=== PATIENT | female | born 1945 | race Caucasian/White ===

== ENCOUNTER 2023-02-07 06:40 | Emergency (ER) | payer MEDICARE, OTHER ==
[~2023-02-07] VITALS: Ht 154.9 cm; Wt 84.8 kg
[2023-02-07] MEDS ORDERED: TOPROL XL25 MG PO (12:28)
[2023-02-07 13:24] VITALS: BP 155/69
--- NOTE | 2023-02-08 21:59 | EKG ---
[facility] [address] [facility] [place] [address] Signed Sinus rhythm with marked sinus arrhythmia Right bundle branch block Abnormal ECG No previous ECGs available Confirmed by Micah Underwood MD () on 02/08/2023 9:59:41 PM Electronically Signed By: MICAH UNDERWOOD MD 02/08/23 2159 PATIENT NAME: FAUSTINO MÉNDEZ Electrocardiogram DATE OF : 47 PHYSICIAN: MICAH UNDERWOOD MD REPORT #: [id number] REPORT IS CONFIDENTIAL AND NOT TO BE RELEASED WITHOUT AUTHORIZATION
--- NOTE | 2023-02-08 22:02 | EKG ---
[facility] [address] [place] [address] Signed Wide QRS tachycardia Right bundle branch block Septal infarct , age undetermined Abnormal ECG When compared with ECG of 07-FEB-2023 08:21, Wide QRS tachycardia has replaced Sinus rhythm Vent. rate has increased BY 50 BPM Confirmed by Micah Underwood MD () on 02/08/2023 10:02:23 PM Electronically Signed By: MICAH UNDERWOOD MD 02/08/232201 PATIENT NAME: FAUSTINO MÉNDEZ ROSANNE Electrocardiogram DATE OF : 47 PHYSICIAN: MICAH UNDERWOOD MD REPORT #: [id number] REPORT IS CONFIDENTIAL AND NOT TO BE RELEASED WITHOUT AUTHORIZATION
--- NOTE | 2023-02-08 22:03 | EKG ---
[facility] [address] [place] [address] Signed Poor data quality, interpretation may be adversely affected Atrial fibrillation Right bundle branch block Septal infarct , age undetermined Abnormal ECG When compared with ECG of 07-FEB-2023 09:50, Atrial fibrillation has replaced Wide QRS tachycardia Vent. rate has decreased BY 51 BPM Confirmed by Micah Underwood MD () on 02/08/2023 10:03:40 PM Electronically Signed By: MICAH UNDERWOOD MD 02/08/232202 PATIENT NAME: FAUSTINO MÉNDEZ Electrocardiogram DATE OF : 47 PHYSICIAN: MICAH UNDERWOOD MD REPORT #: [id number] REPORT IS CONFIDENTIAL AND NOT TO BE RELEASED WITHOUT AUTHORIZATION
--- NOTE | 2023-02-08 22:06 | EKG ---
[facility] [address] [place] [address] Signed Wide QRS tachycardia Nonspecific intraventricular block Cannot rule out Septal infarct , age undetermined Abnormal ECG When compared with ECG of 07-FEB-2023 09:50, Right bundle branch block is still present Confirmed by Micah Underwood MD () on 02/08/2023 10:06:13 PM Electronically Signed By: MICAH UNDERWOOD MD 02/08/232205 PATIENT NAME: FAUSTINO MÉNDEZ ROSANNE Electrocardiogram DATE OF : 47 PHYSICIAN: MICAH UNDERWOOD MD REPORT #: [id number] REPORT IS CONFIDENTIAL AND NOT TO BE RELEASED WITHOUT AUTHORIZATION
== END 2023-02-07 13:20 | disposition home or self-care (01) ==
LOC: ED 06:40
DX: M25.551 Pain in right hip (principal); I47.1 Supraventricular tachycardia; W01.0XXA Fall on same level from slipping, tripping and stumbling without subsequent striking against object, initial encounter; Z88.0 Allergy status to penicillin; Z88.7 Allergy status to serum and vaccine; Z88.5 Allergy status to narcotic agent; Z20.822 Contact with and (suspected) exposure to COVID-19
CPT/HCPCS: 36415; 70450; 72125; 72131; 73700; 80053; 81001; 82553; 85025; 86850; 86900; 86901; 87502; 93005; 93010; 96361; 96374; 96375; 96376; 99285-25; C9803; G0480; J0153; J1200; J2270; J2405; J7121; U0003

== ENCOUNTER 2024-08-06 16:12 | Inpatient (IN) | payer MEDICARE, OTHER ==
[~2024-08-06] VITALS: Ht 154.9 cm; Wt 71.8 kg
[~2024-08-06 16:12] MED LIST: TOPROL XL25 MG PO
[2024-08-06] MEDS ORDERED: SODIUM CHLORIDE 0.9% 500 ML IV ONE (17:00)
[2024-08-06 17:12] LABS: BILIRUBIN, URINE NEGATIVE (negative); BLOOD/HGB, URINE NEGATIVE (Negative); KETONE, URINE NEGATIVE (Negative); LEUK ESTERASE, URINE TRACE (negative); NITRITE, URINE NEGATIVE (negative)
[2024-08-06 17:18] LABS: EPITHELIAL CELLS, URINE SQUAMOUS 1+ /lpf (0-1+)
[2024-08-06 17:19] LABS: BACTERIA, URINE 4+ /hpf (negative); CASTS, URINE NONE SEEN \\lpf; COLLECTION TYPE, URINE CATH; CRYSTALS, URINE NONE SEEN (0-1+); RED BLOOD CELLS, URINE 0-1 /hpf (0-5); REFLEX CULTURE, URINE Yes (No); WHITE BLOOD CELLS, URINE 21-40 /HPF (0-5)
[2024-08-06] MEDS ORDERED: HYDROmorphone HCL 1 MG/ML SYR IV PRN (17:30)
[2024-08-06 17:36] LABS: BASOPHILS 1.1 % (0-2); EOSINOPHILS 2.5 % (0-6); HEMATOCRIT 44.1 % (35.0-50.0); HEMOGLOBIN 15.2 g/dL (12.0-18.0); LYMPHOCYTES 32.4 % (24-44); MCH 29.3 (27-36); MCHC 34.4 g/dl (30-36); MCV 85.2 fl (81-99); MONOCYTES 8.1 % (0-12); NEUTROPHILS 55.9 % (39-80); PLATELET COUNT 229 K/uL (140-440); RBC 5.18 M/ul (4.3-5.7); RDW 14.5 (10.5-15.0)
[2024-08-06 17:54] LABS: ALBUMIN 3.2 g/dL (3.4-5.0); ALBUMIN/GLOBULIN RATIO 0.84 (1.1-2.4); ANION GAP 6.6 (7-21); BILIRUBIN, TOTAL 0.3 ng/dL (0.2-1.0); BUN/CREATININE RATIO 33.89 (6.0-28.6); CALCIUM 9.6 mg/dL (8.5-10.1); CREATININE, SERUM 0.59 mg/dL (0.55-1.02); POTASSIUM 3.6 mmol/L (3.5-5.1)
[2024-08-06] MEDS ORDERED: CEFTRIAXONE/SODIUM CHLORIDE 2 GM/100 ML PIGGYBACK IV ONE (18:45)
[2024-08-06] MEDS ORDERED: ondansetron HCL 4 MG/2 ML VIAL IV ONE (19:00)
[2024-08-06] MEDS ORDERED: ACETAMINOPHEN 325 MG TAB PO PRN (19:30)
[2024-08-06] MEDS ORDERED: SODIUM CHLORIDE 0.9% 1,000 ML IV SCH (19:30)
[2024-08-06] MEDS ORDERED: DEXTROSE 5% 1,000 ML IV PRN (19:45)
[2024-08-06] MEDS ORDERED: DEXTROSE 50% 50 ML SYR IV PRN ×2 (19:45)
[2024-08-06] MEDS ORDERED: GLUCAGON,HUMAN RECOMBINANT 1 MG/ML VIAL SUB-Q PRN (19:45)
[2024-08-06] MEDS ORDERED: IBLOOD GLUCOSE TEST STRIP 1 EA TEST XX PRN (19:45)
[2024-08-06] MEDS ORDERED: PHENAZOPYRIDINE HCL 95 MG TAB PO PRN (20:00)
[2024-08-06] MEDS ORDERED: OXYCODONE/APAP 5/325 TAB PO PRN (20:00)
--- NOTE | 2024-08-06 20:10 | NUR ---
PATIENT ARRIVED VIA STRETCHER FROM ED, WITH CAMILO ED RN, PATIENT ALERT AND ORIENTED. SHE ENDORSES PAIN "ALL OVER, MOSTLY BACK AND LEGS". PATIENT TRANSFERED VIA STAFF SLIDE. PATIENT TOLERATED WELL. SHE IS ASKING FOR WATER, CHAPSTICK, REPOSITIONED. THIS RN DISCUSSED WITH PATIENT THAT ONCE STAFF CAN GET HER SITUATED AND V/S, ASSESSMENT COMPLETE, STAFF WILL ENSURE PATINET HAS ALL OTHER NEEDS MET.
[2024-08-06 20:14] VITALS: BP 162/81
--- NOTE | 2024-08-06 20:30 | NUR ---
UPDATED UPDATED ON ADMISSION ASSESSMENT, PATIENT HAS SEVERAL SKIN ISSUES INCLUDING YEAST/URINE BURN TYPE RASH IN GROIN, YEAST TYPE RASH UNDER BREASTS, AND PANUS. NYSTATIN POWDER ORDERED.
[2024-08-06] MEDS ORDERED: INSULIN LISPRO 100 UNIT/ML ML SUB-Q SCH (21:00)
[2024-08-06] MEDS ORDERED: NYSTATIN CREAM 30 GM TUBE TOP SCH (21:00)
[2024-08-06] MEDS ORDERED: IBLOOD GLUCOSE TEST STRIP 1 EA TEST VI SCH (21:00)
--- NOTE | 2024-08-06 21:11 | NUR ---
SUPERVISOR PLATING AND POINT ASSEMBLY CHECKED PT BLOOD SUGAR AT RN REQUEST. BLOOD SUGAR IS 146. RN NOTIFED. PT STATES NO NEEDS AT THIS TIME. CALL LIGHT WITHIN REACH.
[2024-08-06 21:54] VITALS: BP 162/81
--- NOTE | 2024-08-06 21:59 | NUR ---
PATIENT RESTING QUIELTY IN BED EYES CLOSED RESPIRATIONS REGULAR AT 18/MIN. NO DISTRESS NOTED.
--- NOTE | 2024-08-06 23:05 | NUR ---
PATIENT CALLED AND YELLING OUT IN REGARDS TO PAIN SHE REPORTS IN HER LEGS,ANKLES, AND RIGHT HIP. PERCOCET PRN ADMINISTERED, REPOSITIONED, AND ASSURED PATIENT WITH THERAPUTIC CONVERSATION THAT STAFF IS HERE TO HELP.
[2024-08-07] VITALS (14 sets, daily range): BP systolic 95–189; BP diastolic 49–110
[2024-08-07] MEDS ORDERED: ondansetron HCL 4 MG/2 ML VIAL IV PRN (01:00)
--- NOTE | 2024-08-07 01:16 | NUR ---
ROUNDING ON PATIENT, SHE IS RESTING IN BED EYES CLOSED, PATIENT ALERT TO STAFF IN ROOM. THIS RN AND TECHNICAL SALES SPECIALIST CLARISSA INTO WASH UNDER BREAST/PANNUS/GROIN AND PLACE PILLOWCASES IN SKIN FOLDS TO PROVIDE PROTECTION FROM FURTHER SKIN BREAKDOWN. THE NYSTATIN CREAM IS NOT AVAILABLE UNTIL PHARMACY ARRIVES IN AM. PATIENT REPORTS PAIN IS SEVERE, PERCOCET WAS ADMINSITERED EARLIER, WILL PROVIDED DILAUDID PRN NOW, B/P ALSO NOTED TO BE ELEVATED WITH PAIN, AFTER PAIN COVERAGE B/P STABLE. NEW PUREWICK PLACED. PATIENT DID HAVE URINE IN DEPENDS, BLADDER SCANNED TO ENSURE NOT OVER FULL PATIENT REPORTS FEELING LIKE SHE NEEDS TO VOID BUT UNABLE TO. BLADDER SCANNED FOR 187. DISCUSSED WITH PATIENT THAT SHE HAS A UTI AND THAT CAN GIVE THAT SENSATION FOR NEEDING TO VOID.
--- NOTE | 2024-08-07 03:23 | NUR ---
ANITA DO RN ASSESSING PATIENT FOR TECHNICAL ASSISTANT CONSULT ORDER AT THIS TIME. PATIENT ALERT AND ORIENTED, LAUGHING AND VISITNG WITH STAFF.
--- NOTE | 2024-08-07 03:33 | NUR ---
PATIENT ADMINISTERED DILAUDID PRN FOR PAIN RELATED TO WOUND CARE.
--- NOTE | 2024-08-07 04:18 | NUR ---
IN ROOM TO ASSESS BLE WOUNDS. BOTH LOWER LEGS HAVE FIRMLY ADHERED CRUST TO CIRCUMFERENTIAL BLE FROM JUST BELOW THE KNEES TO THE ANKLES. SCANT YELLOW DRAINAGE NOTED. RN UNABLE TO MEASURE SPECIFIC WOUNDS. PHOTO CONSENT SIGNED. BLE SOAKED IN WARM TOELS WITH SOAP, LIGHT DEBRIDEMENT WITH WASH CLOTHES PROVIDED. MODERATE DEBRIDEMENT WITH WOUND CLEANSER AND DEBRIDEMENT LOLLY PROVIDED. PT TOLERATED FAIR WITH PAIN MED PROVIDED BY PRIMARY RN. PT STILL HAS FIRMLY ADHERED CRUST ON BOTH LEGS. ZINC BASED WOUND PASTE PLACED LIBERALLY OVER ALL CRUSTED AREAS AND WOUND. 2 AREAS ON ANTERIOR LOWER RIGHT LEG COVERED WITH ADAPTIC THEY APPEAR TO HAVE AN OPEN, WHITE WOUND BASE AND ARE PAINFUL. BLE COVERED WITH ABD PADS AND WRAPPED LOOSLEY WITH COBAN. RN WILL RETURN TOMORROW TO FURTHER DEBRIDE BLE AND REASSESS FOR FURTHER CARE. IF DRESSINGS BECOME SOILED OR WET, REDRESS WITH ZINC PASTE, ABD PADS ABD COBAN.
--- NOTE | 2024-08-07 05:19 | NUR ---
AREA DIRECTOR OF HOME HEALTH SALES OBTAINED VITALS AND I&O. PUREWICK CANNISTER EMPTIED. PT STATES NO FURTHER NEEDS AT THIS TIME. CALL LIGHT WITHIN REACH.
[2024-08-07 05:21] LABS: BASOPHILS 0.7 % (0-2); EOSINOPHILS 1.1 % (0-6); HEMATOCRIT 41.6 % (35.0-50.0); HEMOGLOBIN 14.1 g/dL (12.0-18.0); LYMPHOCYTES 24.2 % (24-44); MCH 29.2 (27-36); MCV 85.9 fl (81-99); PLATELET COUNT 210 K/uL (140-440); RBC 4.84 M/ul (4.3-5.7); RDW 14.8 (10.5-15.0)
[2024-08-07 05:43] LABS: ALBUMIN 2.9 g/dL (3.4-5.0); ALBUMIN/GLOBULIN RATIO 0.81 (1.1-2.4); ANION GAP 6.7 (7-21); BILIRUBIN, TOTAL 0.4 ng/dL (0.2-1.0); BUN/CREATININE RATIO 20.28 (6.0-28.6); CALCIUM 8.6 mg/dL (8.5-10.1); CREATININE, SERUM 0.69 mg/dL (0.55-1.02); MAGNESIUM 1.6 mg/dL (1.8-2.4); POTASSIUM 3.7 mmol/L (3.5-5.1); PROTEIN, TOTAL 6.5 g/dL (6.4-8.2)
--- NOTE | 2024-08-07 06:54 | NUR ---
ROUNDING, PATIENT RESTLESS, MOANING, EYES CLOSED, PATIENT STARTLED AWAKE TO NAME. SHE REPORTS 10/10 PAIN AT LOWER BACK AND RIGHT HIP. DILAUDID PRN ADMINISTERED.
--- NOTE | 2024-08-07 06:55 | NUR ---
PATIENT REPOSITIONED IN BED TO HER LEFT SIDE, PILLOWS PLACED FOR COMFORT.
--- NOTE | 2024-08-07 07:15 | NUR ---
RECEIVED REPORT FROM BENJI ALDRICH. PT RESTING IN BED WITH EYES CLOSED ON LEFT SIDE. BREATHING EVEN AND UNLABORED. CALL LIGHT WITHIN REACH.
[2024-08-07] MEDS ORDERED: NICOTINE 14 MG/24 HR 1 EA TDSY TD SCH (09:00)
[2024-08-07] MEDS ORDERED: MAGNESIUM SULFATE 2 GM/50 ML BAG IV ONE ×2 (09:00→13:45)
[2024-08-07] MEDS ORDERED: ENOXAPARIN SODIUM 40 MG/0.4 ML SYR SUB-Q SCH (09:00)
[2024-08-07] MEDS ORDERED: METFORMIN HCL500 M1 PO (09:28)
[2024-08-07] MEDS ORDERED: DULOXETINE HCL20 MG PO (09:29)
--- NOTE | 2024-08-07 10:15 | NUR ---
PT WORKING WITH PHYSICAL THERAPY, GIVEN PAIN MEDICATION PRIOR TO PHYSICAL THERAPY FOR 9/10 PAIN.
--- NOTE | 2024-08-07 10:58 | NUR ---
DID THERESE CARE ON PT AND PUT NEW PUREWICK ON @1000. CHANGED PT LINENS. CALL LIGHT IS WITHIN REACH AND PT DIDNT NEED ANYTHING ELSE.
[2024-08-07] MEDS ORDERED: PHARMACY RENAL DOSE ADJUSTMENT 1 DOSE MISC PO SCH (12:00)
--- NOTE | 2024-08-07 12:15 | NUR ---
PT UP TO CHAIR, STATES HER HEELS FEEL LIKE THEY "ARE RUBBING ON THE CHAIR". WASHCLOTHES PLACED UNDER ANKLES TO ELEVATE HEELS, PT STATES THIS FEELS "BETTER". PT STATES NO FURTHER NEEDS AT THIS TIME, CALL LIGHT WITHIN REACH.
--- NOTE | 2024-08-07 13:38 | NUR ---
RN IN ROOM TO RESPOND TO PRESS HAND SUPERVISOR ALERT OF RAPID HEART RATE ON VS. MD NOTIFIED. HR 165, BP HYPOTENSIVE. STAT EKG IN PROCESS. RESULTS PROVIDED TO MD. TELE MONITOR PLACED. REPEAT EKG REQUESTED. DIALYSIS TECHNICIAN NOTIFIED OF MD REQUEST TO TX TO CCU.
--- NOTE | 2024-08-07 14:00 | NUR ---
ARRIVED TO ROM 127 IN CCU FROM MED-SURG VIA BED. IT WAS NOTED WHILE ON MED-SURG, WAS FOUND TO BE IN SVT. HAS HX OF SVT, HASN'T TAKEN CARDIAC/HTN MEDS FOR APPROX 2 YEARS. DOES TAKE MAG 2-3 TIMES DAILY, AND TURMERIC. IS AWAKE AND ALERT. IS W/O C/O SHORTNESS OF BREATH. HR170. IN ROOM.
--- NOTE | 2024-08-07 14:05 | NUR ---
PT TRANSFERED TO CCU VIA CHAIR WITH BEAM DYER AND MD PRESENT. PT DENIES C/O CHEST PAIN, SOB, HEADACHE OR DIZZINESS. HR REMAINS ELEVATED IN 170'S ON ARRIVAL TO CCU. SEE EMAR FOR MEDCIATION ADMINISTRATION. PRIMARY RN PROVIDED REPORT TO CCU BENJI GAGE.
[2024-08-07] MEDS ORDERED: ADENOSINE 3 MG/ML VIAL ONE (14:06)
--- NOTE | 2024-08-07 14:10 | NUR ---
PT TRANSFERED TO CCU, REPORT GIVEN TO BENJI GAGE.
--- NOTE | 2024-08-07 14:18 | NUR ---
ADENOSINE 6 MG IV GIVEN PER ORDERS. HR-170. HR SLOWED TO 70 FOR SHOR TIME THIS SLOWED HR TO 70'S FOR A SHORT TIME. HR BACK TO 170'S. PATIENT W/O SS.
--- NOTE | 2024-08-07 14:22 | NUR ---
ADENOSINE 12 MG IV GIVEN. HR DOWN TO 40'S THEN INCREASED TO 70'S. PATIENT TOLERATED WELL. AWAKE, ALERT AND TALKING.
--- NOTE | 2024-08-07 14:23 | NUR ---
NS BOLUS HUNG PER ORDERS. MAG 2 GM INFUSING.
[2024-08-07] MEDS ORDERED: SODIUM CHLORIDE 0.9% 1,000 ML IV SCH (14:30)
[2024-08-07] MEDS ORDERED: ADENOSINE 3 MG/ML VIAL IV ONE (14:30)
[2024-08-07 14:39] LABS: BASOPHILS 1.7 % (0-2); EOSINOPHILS 0.8 % (0-6); HEMATOCRIT 43.5 % (35.0-50.0); HEMOGLOBIN 14.5 g/dL (12.0-18.0); LYMPHOCYTES 25.9 % (24-44); MCH 28.7 (27-36); MCHC 33.4 g/dl (30-36); MCV 85.9 fl (81-99); NEUTROPHILS 63.6 % (39-80); PLATELET COUNT 231 K/uL (140-440); RBC 5.06 M/ul (4.3-5.7); RDW 14.7 (10.5-15.0)
[2024-08-07 14:56] LABS: ALBUMIN 2.9 g/dL (3.4-5.0); ALBUMIN/GLOBULIN RATIO 0.78 (1.1-2.4); ANION GAP 8.8 (7-21); BILIRUBIN, TOTAL 0.6 ng/dL (0.2-1.0); BUN/CREATININE RATIO 22.22 (6.0-28.6); CALCIUM 8.7 mg/dL (8.5-10.1); CREATININE, SERUM 0.72 mg/dL (0.55-1.02); MAGNESIUM 2.4 mg/dL (1.8-2.4); POTASSIUM 3.8 mmol/L (3.5-5.1); PROTEIN, TOTAL 6.6 g/dL (6.4-8.2)
--- NOTE | 2024-08-07 15:00 | NUR ---
C/O LEFT HIP PAIN REPOSITIONED. TAKING FEW SIPS OF WATER. DENIES NAUSEA. PUREWICK IN PLACE. WILL CONTINUE TO MONITOR. HR-88, BP-151/70 (85).
[2024-08-07] MEDS ORDERED: POTASSIUM CHLORIDE 10 MEQ TABCR PO ONE (15:30)
--- NOTE | 2024-08-07 16:00 | NUR ---
ASSESSMENT DONE. PATIENT CONTINUES WITH OVERALL PAIN, MOANS OUT FREQUENTLY. VERY STIFF WHEN BEING REPOSITIONED.
--- NOTE | 2024-08-07 16:06 | NUR ---
MEDICATION ADMINISTRATION PER DEC. PT HOB ELEVATED, PT TAKES PILLS WHOLE IN PUDDING WITHOUT ISSUE. PT COMPLAINING OF L HEEL PAIN, ROLLED TOWEL PLACED BENEATH HER ANKLE TO ASSIST IN ELEVATING HER HEEL. FRESH ICE WATER ALSO PROVIDED. PT WITH NO FURTHER NEEDS, CALL LIGHT AND PERSONAL BELONGINGS IN REACH.
--- NOTE | 2024-08-07 19:00 | NUR ---
REPOSITIONED. LEGS REMAIN WRAPPED BILAT. FEET RED
--- NOTE | 2024-08-07 19:25 | NUR ---
HANDOFF REPORT RECEIVED FROM BENJI GAGE. PT LAYING AWAKE IN BED WATCHING TV. CALL LIGHT WITHIN REACH.
--- NOTE | 2024-08-07 19:40 | NUR ---
PATIENT HAS EPISODE OF SVT, HEART RATE HIGH 160. PATIENT IS AWAKE AND ALERT, DENIES ANY SHORTNESS OF BREATH OR CHEST PAIN. VAGAL MANEUVER PREFORMED, HEART RATE BACK DOWN TO 80'S IN NSR. DR UNDERWOOD IN ROOM. NEW ORDERS RECEIVED PER EMAR.
[2024-08-07] MEDS ORDERED: HYDROmorphone HCL 1 MG/ML SYR IV PRN (19:45)
[2024-08-07] MEDS ORDERED: METOPROLOL TARTRATE 5 MG/5 ML VIAL IV SCH (20:00)
--- NOTE | 2024-08-07 20:15 | NUR ---
PRN PAIN MEDICATION GIVEN PER EMAR. PT STATES HER BACK, LEGS, AND ABDOMEN ARE HURTING. PT MOANS WITH MOVEMENTS, REPOSITIONED LEGS WITH PILLOWS.
[2024-08-07] MEDS ORDERED: CEFTRIAXONE/SODIUM CHLORIDE 2 GM/100 ML PIGGYBACK IV SCH (21:00)
--- NOTE | 2024-08-07 21:40 | NUR ---
PATIENT WIPED DOWN WITH BATHING CLOTH. NYSTATIN CREAM APPLIED. REPOSITIONED IN BED. WARM BLANKET PROVIDED. CALL LIGHT WITHIN REACH, BED IN LOW AND LOCKED POSITION.
--- NOTE | 2024-08-07 21:57 | EKG ---
[facility] [address] [facility] [place] [address] Signed Wide QRS tachycardia Right bundle branch block Left posterior fascicular block Bifascicular block T wave abnormality, consider inferolateral ischemia Abnormal ECG When compared with ECG of 07-FEB-2023 10:01, No significant change was found Confirmed by Micah Underwood MD () on 08/07/2024 9:57:18 PM Electronically Signed By: MICAH UNDERWOOD MD 08/07/24 2157 PATIENT NAME: FAUSTINO MÉNDEZ ROSANNE Electrocardiogram DATE OF : 47 PHYSICIAN: MICAH UNDERWOOD MD REPORT #: [id number] REPORT IS CONFIDENTIAL AND NOT TO BE RELEASED WITHOUT AUTHORIZATION
--- NOTE | 2024-08-07 21:58 | EKG ---
[facility] [address] [place] [address] Signed Normal sinus rhythm Right bundle branch block Abnormal ECG When compared with ECG of 07-AUG-2024 13:38, Sinus rhythm has replaced Wide QRS tachycardia Vent. rate has decreased BY 67 BPM Confirmed by Micah Underwood MD () on 08/07/2024 9:57:54 PM Electronically Signed By: MICAH UNDERWOOD MD 08/07/24 2158 PATIENT NAME: FAUSTINO MÉNDEZ ROSANNE Electrocardiogram DATE OF : 47 PHYSICIAN: MICAH UNDERWOOD MD REPORT #: [id number] REPORT IS CONFIDENTIAL AND NOT TO BE RELEASED WITHOUT AUTHORIZATION
--- NOTE | 2024-08-07 23:04 | NUR ---
BLE SOAK WITH WARM TOWELS, CLEANED WITH SOAP/WATER AND WOUND CLEANSER. ALL AREAS DEBRIDED WITH LOLIDEBRI. R LATERAL LEG WOUND 11CM X 7CM ULCER, GRANUALTING WOUND BASE, VIABLE EDGES. CAVILON APPLIED ON PERIWOUND. ZINC WOUND PASTE AND ADAPTIC PLACED ON WOUND. RIGHT POSTERIOR LEG 12CM X 15 CM ULCER. GRANULATING WOUND BASE WITH SCANT SS DISCHARGE, VIABLE EDGES. CAVILON TO PERIWOUND. ZINC WOUND PASTE AND ADAPTIC PLACED ON WOUND. RIGHT MEDIAL LEG 11CM X 11CM ULCER. GRANULATING BASE WITH 50% FIRMLY ADHERENT SLOUGH FROM 6 O'CLOCK TO 12 O'OCLOCK, VIABLE EDGES. CAVILON USED ON PERIWOUND. ZINC WOUD PASTE PLACED ON WOUND WITH ADAPTIC COVERING. RLE WRAPPED WITH GAUZE AND COBAN. PULSE AND MOTOR INTACT. PT HAS CHRONIC TINGLING IN FEET. LEFT POSTERIOR 7CM X 6CM ULCER. GRANULATING BASE WITH FIRMLY ADHERENT SOUGH FROM 6' OCLOCK TO 2 O'CLOCK. EDGES VIABLE. CAVILON ON PERIWOUND. ZINC WOUND PASTE ON WOUND AND COVERED WITH ADAPTIC. LEFT INNER LEG ULCER 7CM X 10 CM ULCER. GRANULATING BASE WITH VIABLE EDGES.CAVILON ON PERIWOUND. ZINC WOUND PASTE PLACED ON WOUND AND COVERED WITH ADAPTIC. LEFT ANTERIOR ULCER 5CM X 5CM. SMOOTH PALE BASE, VIABLE EDGES. CAVILON ON PERIWOUND. ZINC WOUND PASTE APPLIED. LEFT LOWER LEG WRAPPED WITH ROLL GAUZE AND COBAN. MOTOR AND PULSE INTACT. PT HAS CHRONIC TINGLING IN FEET. CHANGE AND DEBRIDE CRUST EVERY 3 DAYS OR PRN. MAY USE MARIAN WRAP INSTEAD OF COBAN.
[2024-08-08] VITALS (11 sets, daily range): BP systolic 93–170; BP diastolic 55–89
--- NOTE | 2024-08-08 00:30 | NUR ---
PATIENT REPOSITIONED IN BED, NEW PUREWICK PLACED, AND NEW GOWN PROVIDED. THERESE CARE COMPLETE. PATIENT HAS NO FURTHER NEEDS AT THIS TIME. CALL LIGHT WITHIN REACH. PATIENT VITAL SIGNS STABLE.
--- NOTE | 2024-08-08 02:04 | NUR ---
PRN PAIN MEDICATION GIVEN PER EMAR. PATIENT RATES PAIN 8/10. PT REPOSITIONED IN BED. CALL LIGHT WITHIN REACH.
[2024-08-08] MEDS ORDERED: METOPROLOL TARTRATE 5 MG/5 ML VIAL IV PRN (02:30)
--- NOTE | 2024-08-08 02:30 | NUR ---
PATIENT IN SVT WITH HEART RATE HIGH 150. VAGAL MANEUVERS INITIATED BUT UNSUCCESSFUL. DR CASTILLO NOTIFIED AND NEW ORDER OBAINED PER EMAR.
--- NOTE | 2024-08-08 03:20 | NUR ---
PT REMAINS IN SVT AFTER LOPRESSOR PRN DOSES GIVEN PER EMAR. DR UNDERWOOD CALLED AND UPDATED. NEW ORDERS RECEIVED PER EMAR. PATIENT HEART RATE REMAINS IN THE 140'S. BLOOD PRESSURE STABLE. PT REMAINS ASYMPTOMATIC.
[2024-08-08] MEDS ORDERED: dilTIAZem HCL 25 MG/5 ML VIAL IV ONE (03:45)
[2024-08-08] MEDS ORDERED: LACTATED RINGER'S 1,000 ML IV SCH (03:45)
--- NOTE | 2024-08-08 03:45 | NUR ---
PATIENT MOANING AND STATES PAIN 10/10 IN HER LOWER EXTREMITIES. PRN PERCOCET GIVEN PER EMAR.
[2024-08-08] MEDS ORDERED: SODIUM CHLORIDE 0.9% 1,000 ML IV SCH (04:00)
--- NOTE | 2024-08-08 04:00 | NUR ---
PATIENT CONVERTS BACK TO NSR WITH HEART RATE IN THE 70'S AT 0347. PATIENT BACK INTO SVT AT 0354 WITH HEART RATE IN THE 140'S. 500ML/HR NORMAL SALINE BOLUS CONTINUES TO BE INFUSING. PT REMAINS ASYMPTOMATIC.
--- NOTE | 2024-08-08 04:15 | NUR ---
PATIENT CONVERTS BACK TO NSR WITH HEART RATE IN THE 70'S. NS BLOUS COMPLETE.
--- NOTE | 2024-08-08 04:20 | NUR ---
WHEN IN ROOM PATIENT STATES "NO MORE CARES". WHEN ASKED WHAT SHE MEANS BY THAT SHE STATES "NO MORE MEDICATIONS". WHEN PATIENT ASKED ABOUT CARDIAC MEDICATIONS SHE STATES "I DONT WANT ANY OF THAT". PATIENT TAKES OFF O2 PROBE AND BLOOD PRESSURE CUFF AND STATES SHE DOES NOT WANT THEM ON ANYMORE. PATIENT EDUCATED BY THIS RN ON ALL ORDERS AND SAFETY. PATIENT IS ALERT AND ORIENTED X4, AND VERBALIZES UNDERSTANDING OF EDUCATION PROVIDED. AGREED WITH PATIENT TO SPEAK WITH DOCTOR IN THE MORNING WITH CONCERNS. FORECLOSURE HOME INSPECTOR REMAINS IN PLACE, CALL LIGHT WITHIN REACH. ENCOURAGED PATIENT TO CALL WITH ANY CONCERNS.
--- NOTE | 2024-08-08 05:30 | NUR ---
PATIENT REMAINS IN AND OUT OF SVT AND NSR. PATIENT IS LAYING IN BED WITH EYES CLOSED. PATIENT RESPIRATIONS EVEN AND UNLABORED. CALL LIGHT WITHIN REACH.
--- NOTE | 2024-08-08 06:40 | NUR ---
IN ROOM TO REPOSITION PATIENT. WHEN ASKED PATIENT HOW SHE IS FEELING SHE STATES "JUST WONDERFUL" AND SEEMS TO BE IRRITATED. THIS RN THEN ASKED PATIENT WHY SHE SEEMS UPSET. PATIENT STATES "YOU HAVE BEEN DISHONEST WITH ME". WHEN ASKED PATIENT WHAT SHE MEANS, PATIENT STATES "YOU KNOW WHAT I AM TALKING ABOUT". PATIENT BEGINS TO PULL OFF ALL CARDIAC LEADS, BP CUFF, AND IV LINE. THIS RN ATTEMPS TO REASSURE PATIENT, PROVIDED EDUCATION ON SUB ACUTE CARE NURSE FOR SAFETY. PT CONTINUES TO REFUSE CARE. ENSURED PATIENT SAFETY, PROVIDED CALL LIGHT, AND EDUCATED PATIENT TO CALL WITH ANY NEEDS OR CONCERNS. DR UNDERWOOD CALLED AND UPDATED.
--- NOTE | 2024-08-08 07:30 | NUR ---
REPORT RECEIVED. PATIENT IS ASLEEP. NO DISTRESS NOTED.
--- NOTE | 2024-08-08 08:00 | NUR ---
AWAKE. ASSESSMENT DONE. PATIENT TALKING ABOUT WHAT SHE DOESN'T WANT TO DO. SHE CURRENTLY IS REFUSING TO TAKE HEART MEDICATION. TOLD PATIENT WE WANT TO EDUCATE HER REGARDING MEDS AND POC FOR THE DAY AND SHE HAS THE THE RIGHT TO REFUSE CARES, MEDS. PATIENT VERY UNSURE OF HER NEEDS. STATES THERE IS NO PLAN FOR ME, I NEED MOR HELP, I WANT TO GO TO A SENIOR CARE. I TOLD PATIENT, CASE MANAGEMENT WOULD TALK WITH HER ABOUT THIS TOMORROW. SITTING UP IN BED FOR BREAKFAST. REMAINS OFF MONITOR AND NO IVF AT THIS TIME.
--- NOTE | 2024-08-08 08:58 | NUR ---
PHYSICAL THERAPY IN TO WORK WITH PT, DAUGHTER IN TO SEE PT WELL. HR UP TO 118 WHEN PT AMBULATING.
--- NOTE | 2024-08-08 09:00 | NUR ---
TOOK BREAKFAST WELL. DR. UNDERWOOD HERE TO SEE PATIENT AND TALK WITH HER REGARDING TREATMENTS, MEDS, POC. PATIENT SAID SHE WOULDN'T TAKE ANY HEART MEDICATIONS, SHE MIGHT TAKE THE MEDICATION FOR NEUROPATHY. WILL ORDER GABAPENTIN. PATIENT DENIES NEED FOR PAIN MEDICATION . MORE CALM AT THIS TIME.
--- NOTE | 2024-08-08 10:00 | NUR ---
UP TO SHOWER CHAIR USING OVERHEAD LIFT. TO SHOWER VIA SHOWER CHAIR IN ROOM 118.
--- NOTE | 2024-08-08 10:30 | NUR ---
BACK TO BED AFTER SHOWER USING OVERHEAD LIFT. TOLERATED SHOWER WELL. CONTINUES TO REFUSE MOBILITY ARCHITECT MANAGER OR TELEMETRY. OXIMETER READING 88. PATIENT AGREEABLE TO USE O2 VIA NC, THIS APPLIED.
[2024-08-08] MEDS ORDERED: QUETIAPINE FUMARATE 25 MG TAB PO PRN (10:45)
--- NOTE | 2024-08-08 12:00 | NUR ---
ACCHECK 214, 3 UNITS INSULIN GIVEN. SITTING UP IN BED READY FOR LUNCH. NO CHANGES IN ASSESSMENT.
[2024-08-08] MEDS ORDERED: GABAPENTIN 100 MG CAP PO SCH ×2 (13:00)
--- NOTE | 2024-08-08 14:50 | NUR ---
FAMILY MEMBERS ARE IN ROOM.
--- NOTE | 2024-08-08 15:30 | NUR ---
DR. NICOLE HERE TO SEE PATIENT AND TALK WITH HER ABOUT TALK WITH HER ABOUT TAKING HEART MEDICATION. PATIENT CONTINUE TO REFUSE HEART MEDICATIONS. PATIENT ASKING TO TAKE TURMIC, PATIENT IS CONVINCED THE TURMIC HELPS CONTROL HER HR.
--- NOTE | 2024-08-08 15:50 | NUR ---
ASSESSMENT DONE. PATIENT RESTLESS. OXIMETER APPLIED, HR 170. PATIENT IS AWARE OF THIS I TOLD HER HER HR. HAS BEEN REFUSING TREATMENT FOR HR, SHE CONTINUES TO REFUSE TREATMENT. TOLD PATIENT IF SHE WANTED TO COUGH OR DO OTHER VAGAL MANEUVERS SHE CAN TRY IF SHE WANTS TO. PATIENT ASKING FOR TURMIC SHE THINKS THIS WILL CONTROL HER HEART RATE. WILL LEAVE OXIMETER ON FOR NOW.
[2024-08-08] MEDS ORDERED: BENZONATATE 100 MG CAP PO PRN (16:00)
--- NOTE | 2024-08-08 16:30 | NUR ---
SLEEPING, RESP EVEN AND NON-LABORED. HR VIA OXIMETER 174.
[2024-08-08] MEDS ORDERED: metroNIDAZOLE 250 MG TAB PO SCH (17:00)
--- NOTE | 2024-08-08 17:15 | NUR ---
SITTING UP IN BED EATING DINNER. HR VIA OXIMETER 104.
--- NOTE | 2024-08-08 18:37 | NUR ---
ACCUCHECK-164, 1 UNIT INSULIN GIVEN.
--- NOTE | 2024-08-08 19:40 | NUR ---
REPORT RECEIVED FROM BENJI GAGE. PATIENT IS RESTING AWAKE IN BED, NO DISTRESS NOTED.
--- NOTE | 2024-08-08 20:40 | NUR ---
ASSESSMENT COMPLETE. PATIENT IS PLEASANT, ALERT AND ORIENTED X4. PATIENT VITAL SIGNS TAKEN, HEART RATE 169, BLOOD PRESSURE 129/75, SPO2 91% ON 2L NC. PATIENT CONTINUES TO DENY CARDIAC MEDICATION. PT STATES SHE FEELS MUCH BETTER TODAY AFTER GETTING A SHOWER BUT IS COMPLAINING OF ABDOMINAL AND HIP/LEG PAIN. PRN PAIN MEDICATION GIVEN PER EMAR. FRESH ICE WATER AND WARM BLANKET PROVIDED. NO FURTHER NEEDS AT THIS TIME. SAFETY CHECK COMPLETE, BED IN LOW AND LOCKED POSITION WITH BED ALARM ON. CALL LIGHT WITHIIN REACH.
--- NOTE | 2024-08-08 20:44 | NUR ---
VERBAL ORDER FROM MD TO CHANGE PATIENT STATUS TO MEDSURG. PATIENT REFUSING MONITOR AND CARDIAC RELATED MEDICATION AND TREATMENTS AFTER MULTIPLE CONVERSATIONS WITH MD AND NURSING STAFF. HYDROLOGIST ORDER THEREFORE DC'd AT THIS TIME TOO.
--- NOTE | 2024-08-08 21:30 | NUR ---
PATIENT ASSISTED WITH REPOSITIONING IN BED. PATIENT HAS NO FURTHER NEEDS AT THIS TIME. CALL LIGHT WITHIN REACH.
--- NOTE | 2024-08-08 23:20 | NUR ---
PATIENT RESTING IN BED WITH EYES CLOSED, NO DISTRESS NOTED. RESPIRATIONS EVEN AND UNLABORED. CALL LIGHT WITHIN REACH.
[2024-08-09] VITALS (8 sets, daily range): BP systolic 145–181; BP diastolic 53–106
--- NOTE | 2024-08-09 00:05 | NUR ---
PULSE OX PLACED ON PATIENT, SPO2 88% ON ROOM AIR. PATIENT PLACED ON 2L NC. HEART RATE 88. CALL LIGHT WITHIN REACH.
--- NOTE | 2024-08-09 01:20 | NUR ---
HOB LOWERED FOR PATIENT COMFORT. NO FURTHER NEEDS AT THIS TIME. CALL LIGHT WITHIN REACH. BED IN LOW AND LOCKED POSTION WITH BED ALARM ON.
--- NOTE | 2024-08-09 03:15 | NUR ---
PATIENT REPOSITIONED IN BED AND VITAL SIGNS TAKEN. HEART RATE 102, OXYGEN SATURATION 87% ON ROOM AIR. PATIENT PLACED ON 2L NC. PUREWICK CHANGED AND THERESE CARE PROVIDED. PATIENT PROVIDED WITH WATER AND A WARM BLANKET. PATIENT HAS NO FURTHER NEEDS AT THIS TIME. CALL LIGHT WITHIN REACH, BED IN LOW AND LOCKED POSITION WITH BED ALARM ON.
--- NOTE | 2024-08-09 04:51 | NUR ---
PATIENT USED CALL LIGHT REQUESTING PAIN MEDICATION. PATIENT REPORTS PAIN 10/10 IN HER RIGHT HIP AND LOWER EXTREMITIES. PRN PAIN MEDICATION GIVEN PER EMAR. PULSE OX PLACED ON, OXYGEN SATURATION 91% ON 2L NC, HEART RATE 95. NO FURTHER NEEDS AT THIS TIME. CALL LIGHT WITHIN REACH.
--- NOTE | 2024-08-09 05:30 | NUR ---
PATIENT RESTING IN BED WITH EYES CLOSED. NO DISTRESS NOTED. CALL LIGHT WITHIN REACH.
--- NOTE | 2024-08-09 06:30 | NUR ---
PATIENT PUREWICK NOT WORKING PROPERLY. PATIENT LINEN CHANGED. NEW GOWN PROVIDED, AND NEW PUREWICK PLACED. PATIENT REPOSITIONED IN BED. NO FURTHER NEEDS AT THIS TIME. CALL LIGHT WITHIN REACH, BED IN LOW AND LOCKED POSITION WITH BED ALARM ON.
--- NOTE | 2024-08-09 08:00 | NUR ---
SLEEPING, NO DISTRESS NOTED. WILL NOT WAKE FOR ASSESSMENT A THIS TIME.
--- NOTE | 2024-08-09 08:16 | NUR ---
UR CLINICAL REVIEW: 2 MN FOR VERSALUS: MEETS INPT CRITERIA FOR UTI MEDICARE INPT 08/06/24 @ 1946 ORDER MATCHES REG NO AUTH REQUIRED PER MEDICARE GUIDELINES WILL NEED PLACEMENT ASSISTANCE
--- NOTE | 2024-08-09 09:30 | NUR ---
OT IN ROOM WORKING PATIENT.
--- NOTE | 2024-08-09 10:10 | NUR ---
ASSESSMENT DONE. C/O PAIN IN RIGHT HIP. ACCUCHECK 122. NO INSULIN GIVEN. SITTING UP IN BED FOR BREAKFAST.
[2024-08-09] MEDS ORDERED: OXYCODONE HCL 5 MG TAB PO PRN (10:30)
--- NOTE | 2024-08-09 10:30 | NUR ---
TOOK BREAKFAST FAIR. DENIES NAUSEA. REMAINS VERY SLEEPY. COOPERATIVE AND DIRECTABLE.
--- NOTE | 2024-08-09 10:38 | NUR ---
VISITED DURING SPIRITUAL CARE ROUNDS. PT APPEARED TO BE SLEEPING. DID NOT DISTURB. PROVIDED PRAYER.
--- NOTE | 2024-08-09 11:20 | NUR ---
REPORT TO MED-SURG. PATIENT IS RESTING, O2 ON.
--- NOTE | 2024-08-09 11:30 | NUR ---
TO MED-SURG VIA BED.
--- NOTE | 2024-08-09 11:34 | NUR ---
REPORT RECEIVED FROM CCU, PT MOVED TO MED-SURG. ORIENTED TO ROOM AND CONTROLS. CALL LIGHT PLACED IN LAP FRESH H20 PROVIDED. PT AGREES SHE IS COMFORTABLE DENIES IMMEDIATE NEEDS
[2024-08-09] MEDS ORDERED: SODIUM CHLORIDE 45 ML BTL NAS PRN (12:00)
[2024-08-09] MEDS ORDERED: SENNOSIDES/DOCUSATE 1 EA TAB PO SCH (12:02)
--- NOTE | 2024-08-09 12:26 | NUR ---
PT SITTING UP IN BED SELF FEEDING NOON MEAL
--- NOTE | 2024-08-09 12:41 | NUR ---
ALERT AND ORIENTED IN ROOM DEMOGRAPHICS VERIFIED. EMERGENCY CONTACT IS BATSHEVA SANCHES, SISTER [phone]. PATIENT VERBALIZES SHE FEELS SHE CAN NOT RETURN TO [facility] AND DESIRES ASS[facility] MANA[employer] CARE PLACEMENT. SHE IS OPEN TO SNF CARE AT THIS TIME, WHICH IS RECOMMENDED BY PT/OT. SHE PREFERS TO STAY IN [place] IF POSSIBLE. [facility], [facility] OR [facility]. HER END GOAL IS TO BE ADMITTED TO [facility] MANAGER CARE. SHE HAS NOT REACHED OUT TO [facility] REGARDING HALFWAY MEDICAID. AFTER DISCUSSING WITH HER, FINANCIALLY, SHE WILL NOT YET QUALIFY FOR [facility] [employer] MA[employer] MEDICAID. INFORMATION PROVIDED FOR [facility] TO SPEAK WITH [facility] [employer]ENTER MANA[employer] MEDICAID AND INSTRUCTED ON TIME FRAME TO QUALIFY AND HOW SHE NEEDS TO PROCEED. VERBALIZES UNDERSTANDING. REFERRAL FAXED TO [facility], [facility] AND [facility]
--- NOTE | 2024-08-09 13:54 | NUR ---
DID THERESE CARE ON PT AND CHANGED RADHA @8249 AND BRIEF PT DIDNT NEED ANYTHING ELSE AND CALL LIGHT IS WITHIN REACH.
--- NOTE | 2024-08-09 14:04 | NUR ---
PUREWIK CHANGED AND THERESE CARE DONE. PT RESTING EYES CLOSED
--- NOTE | 2024-08-09 14:37 | NUR ---
PT AWAKE FOR ASSESSMENT RETURNS TO RESTING SOUNDLY. MEWS SCORE TALLIED AT THIS TIME RESPS WERE 22 WHEN VITALS RECORDED SCORING 2 PTS. RESP 16 AT THIS TIME PT IN NO DISTRESS NO SIGNS OF ISSUE REQUIRING NOTIFICATION OF HOSPTIALIST. ELEVATED TEMP LIKELY RESP RELATED WILL REASSESS WHEN PT AWAKENS AGAIN.
--- NOTE | 2024-08-09 16:20 | NUR ---
PT CONTINUES RESTING EYES CLOSED
--- NOTE | 2024-08-09 17:14 | NUR ---
PT REPOSITIONED UP IN BED SHE DECLINES PAIN MEDICATION AT THIS TIME STATING SHE WILL WAIT UNTIL LATER. AGREES SHE IS READY FOR DINNER. CALL LIGHT IN HAND
[2024-08-09] MEDS ORDERED: TURMERIC 500 MG PO PRN (17:15)
[2024-08-09] MEDS ORDERED: TUMERIC 500 MG PO SCH (17:30)
--- NOTE | 2024-08-09 19:10 | NUR ---
pt RESTING IN THE BED. REPORT RECEIVED FROM IVANIA LEBLANC. BOARD UPDATED. pt DENIES ANY NEEDS AT THIS TIME. CALL LIGHT WITHIN REACH.
--- NOTE | 2024-08-09 20:25 | NUR ---
ASSESSMENT AND VITAL SIGNS DONE. pt RESTING IN THE BED. PURE WICK IN PLACE. BG CHECKED WITH A RESULTS OF 181. SS INSULIN ADMINISTERED. LUNG SOUNDS CLEAR. pt DENIES ANY NEEDS AT THIS TIME. CALL LIGHT WITHIN REACH. SCHEDULED MEDICATIONS ADMINISTERED.
--- NOTE | 2024-08-09 22:15 | NUR ---
pt CALLED AND C/O 04/14 PAIN. PRN PAIN MEDS ADMINISTERED. pt DENIES ANY OTHER NEEDS AT THIS TIME. CALL LIGHT WITHIN REACH.
[2024-08-10] VITALS (7 sets, daily range): BP systolic 160–184; BP diastolic 69–106
--- NOTE | 2024-08-10 00:13 | NUR ---
pt RESTING IN THE BED WITH EYES CLOSED. RR EVEN AND UNLABORED. CALL LIGHT WITHIN REACH.
--- NOTE | 2024-08-10 02:31 | NUR ---
pt RESTING IN THE BED WITH EYES CLOSED. RR EVEN AND UNLABORED. CALL LIGHT WITHIN REACH.
--- NOTE | 2024-08-10 04:06 | NUR ---
pt RESTING IN THE BED WITH EYES CLOSED. RR EVEN AND UNLABORED. CALL LIGHT WITHIN REACH.
--- NOTE | 2024-08-10 06:41 | NUR ---
VS AND ASSESSMENT DONE. pt ATTEMPTED TO USE THE BEDPAN. pt UNABLE TO HAVE A BM. NEW PURE WICK PLACED. pt DENIES ANY OTHER NEEDS AT THIS TIME. CALL LIGHT WITHIN REACH.
--- NOTE | 2024-08-10 07:13 | NUR ---
BEDSIDE REPORT RECEIVED FROM BENJI DOUGLAS. PT AWAKE AND ALERT. WATCHES TV, CALL LIGHT IN REACH. NO REQUESTS AT THIS TIME.
--- NOTE | 2024-08-10 07:56 | NUR ---
PATIENT IN BED AT THIS TIME. CULTURIST WENT INTO PATIENTS ROOM FOR HOURLY ROUNDS AND BLOODSUGAR CHECK. CALL LIGHT WITHIN REACH, NO FURTHER NEEDS AT THIS TIME.
[2024-08-10] MEDS ORDERED: FUROSEMIDE 20 MG TAB PO ONE (09:30)
[2024-08-10] MEDS ORDERED: POLYETHYLENE GLYCOL 3350 1 PACKET PO ONE (09:30)
--- NOTE | 2024-08-10 10:30 | NUR ---
PATIENT IN BED AT THIS TIME. 2 CNAS WENT INTO ROOM AND PLACED BED BRUNSON UNDERNEATH PATIENT. PATIENT WAS TOLD TO CALL WHEN SHE WAS FINISHED. AFTER PATIENT CALLED TO LET FASHION INTERN KNOW SHE WAS FINSIHED, FASHION INTERN REMOVED BED BRUNSON FROM UNDERNEATH PATIENT. CALL LIGHT WITHIN REACH, NO FURTHER NEEDS AT THIS TIME.
--- NOTE | 2024-08-10 10:43 | NUR ---
VISITED DURING SPIRITUAL CARE ROUNDS. PT IN OVERALL GOOD SPIRITS, EXHIBITED MINOR ANXIOUSNESS AROUND UNCERTAINTY OF PATH FORWARD. DIRECTOR OF OPERATIONS PROVIDED SUPPORTIVE PRESENCE, HOSPITALITY, PRAYER. PT EXPRESSED GRATITUDE.
--- NOTE | 2024-08-10 11:12 | NUR ---
PT RESTS BLE WITH HEELS PRESSED AGAINST EACH OTHER. BLANCHABLE REDNESS NOTED OVER THESE AREAS. FOAM DRESSINGS APPLIED OVER THE MEDIAL ASPECT OF EACH HEEL TO PREVENT PRESSURE INJURY. PT STATES, "THAT FEELS BETTER," ONCE FOAM DRESSINGS ARE IN PLACE.
--- NOTE | 2024-08-10 11:13 | NUR ---
Spoke with Laura. She states she is willing to go to any SNF available. She has family in [place] and is from [place]. Let her know I will contact SNFS in that area. I called and spoke with Emeterio at the [facility]. She is reviewing the chart now. Christine L[facility]pez texted and they won't have a bed open until . I have attempted to text and call [facility] several times. and have not received a response. I did call and confirm pts PCP is Dr. Grayson. I was able to schedule pt a FU appt in September and will be gone. appt. scheduled for Sep.09 at 2 pm.
--- NOTE | 2024-08-10 11:58 | NUR ---
PHYSICAL THERAPY IN ROOM TO WORK WITH PT.
--- NOTE | 2024-08-10 13:30 | NUR ---
[facility]. They would like to admit at 11:00. I called and scheduled transport for 10:00 am per van. Per PT, pt is a heavy 2 person assist. I updated pt and she stated she is overwhelmed and needs to stay 2-3 more days to wrap her head around discharge. We discussed this really isn't possible to have Medicare pay for her to stay without a medical reason. Per 8:[address] Dong, pt is medically ready for dc. Pt now stating family cannot bring her clothing. I let her know I will get her clothing for a day. She has clothing in her closet. She can have family bring her clothing when they have time. She states her sister and nephew will visit her.
--- NOTE | 2024-08-10 15:15 | NUR ---
PATIENT IN BED AT THIS TIME. MAINTENANCE WELDER CHANGED PATIENTS PUREWICK. CALL LIGHT WITHIN REACH, NO FURTHER NEEDS AT THIS TIME.
--- NOTE | 2024-08-10 15:46 | NUR ---
PT RESTS IN BED, AWAKE. DISCUSSED DISCHARGE PLAN. VISITORS X2 IN ROOM. PT WATCHES TV, VISITS AND WORKS ON MAKING A LIST FOR DISCHARGE.
--- NOTE | 2024-08-10 16:37 | NUR ---
Met with pt and her sister, Diana. Friend was with them also. All are in agreement for pt to go to a SNF. Diana would like pt to be able to stay in the hospital until she can walk. We discussed we are critical access, pt needs to go on to a SNF where she can have PT/OT. She does not medically need to remain in the hospital. We discussed I called [facility] Dis[facility]. Pt had an eval recently and was over income. Pt needs to spend down to $2000 in her accounts. Pt needs to decide if she wants to remain in [place] or return to [place] when she dc from SNF. Family will bring clothing in tonight or take to SNF when nephew can drive sister.
--- NOTE | 2024-08-10 16:49 | NUR ---
PATIENT IN BED AT THIS TIME. PANEL ASSEMBLER WENT INTO PATIENTS ROOM FOR HOURLY ROUNDINGS. PANEL ASSEMBLER REFILLED CRYO CUFF. PATIENT WAS ALSO REQUESTING PAIN MEDICATIONS, RN NOFITIED. CALL LIGHT WITHIN REACH, NO FURTHER NEEDS AT THIS TIME.
--- NOTE | 2024-08-10 16:54 | NUR ---
PATIENT IN BED AT THIS TIME. CALL LIGHT WITHIN REACH, NO FURTHER NEEDS AT THIS TIME.
[2024-08-10] MEDS ORDERED: ASCORBIC ACID 250 MG TABLET PO SCH (17:00)
--- NOTE | 2024-08-10 18:18 | NUR ---
PATIENT IN BED WATCHING TV AT THIS TIME. VITALS AND I&O'S DONE AND CHARTED. CALL LIGHT IN REACH. NO FURTHER NEEDS AT THIS TIME.
--- NOTE | 2024-08-10 19:15 | NUR ---
REPORT RECEIVED FROM TIARA LEBLANC. pt RESTING IN THE BED ATTEMPTING TO USE THE BED BRUNSON. BOARD UPDATED. pt DENIES ANY OTHER NEEDS AT THIS TIME. CALL LIGHT WITHIN REACH.
--- NOTE | 2024-08-10 20:40 | NUR ---
ASSESSMENT AND VITAL SIGNS DONE. pt C/O 03/15 PAIN. PRN PAIN MEDICATION ADMINISTERED. SCHEDULED MEDS ADMINISTERED. PURE WICK IN PLACE. pt DENIES ANY OTHER NEEDS AT THIS TIME. CALL LIGHT WITHIN REACH.
--- NOTE | 2024-08-10 22:45 | NUR ---
pt RESTING IN THE BED WITH EYES CLOSED. RR EVEN AND UNLABORED. CALL LIGHT WITHIN REACH.
--- NOTE | 2024-08-11 00:42 | NUR ---
pt RESTING IN THE BED WITH EYES CLOSED. RR EVEN AND UNLABORED. CALL LIGHT WITHIN REACH.
--- NOTE | 2024-08-11 02:44 | NUR ---
pt RESTING IN THE BED WITH EYES CLOSED. RR EVEN AND UNLABORED. CALL LIGHT WITHIN REACH.
[2024-08-11 04:06] VITALS: BP 186/87
[2024-08-11 04:19] VITALS: BP 186/87
--- NOTE | 2024-08-11 04:41 | NUR ---
ASSESSMENT AND VITAL SIGNS DONE. NEW PURE WICK PLACED. pt BP ELEVATED. pt DENIES ANY MEDICATION THAT WE CAN GIVE HER AND WANTS TO TAKE HER OWN TUMERIC FOR THE BP. pt WANTED COFFEE, DECAF PROVIDED. pt REPOSTIONED, NEW BRIEF PLACED. NYSTATIN CREAM PLACED UNDER PANIS. pt DENIES ANY OTHER NEEDS AT THIS TIME. CALL LIGHT WITHIN REACH.
--- NOTE | 2024-08-11 07:11 | NUR ---
VERBAL REPORT RECEIVED FROM BENJI DOUGLAS. PT RESTS IN BED WITH EYES CLOSED, RESP EVEN AND UNLABORED.
[2024-08-11] MEDS ORDERED: OXYCODONE-ACET1 EAC1 PO (07:44)
[2024-08-11] MEDS ORDERED: BENZONATATE100 MG PO (07:44)
[2024-08-11] MEDS ORDERED: STIMULANT LAXA1 EACH PO (07:45)
[2024-08-11] MEDS ORDERED: URINARY PAIN RE95 MG PO (07:46)
[2024-08-11] MEDS ORDERED: VITAMIN C500 M1 PO (07:46)
[2024-08-11] MEDS ORDERED: TURMERIC500 M2 PO (07:50)
--- NOTE | 2024-08-11 08:05 | NUR ---
PATIENT REMAINS ON RA. TAKING OFF RT SERVICE. PLEASE CALL WITH ANY CONCERNS OR O2 USE.
--- NOTE | 2024-08-11 08:05 | NUR ---
PATIENT REMAINS ON RA. TAKING OFF RT SERVICE. PLEASE CALL WITH ANY CONCERNS OR O2 USE.
--- NOTE | 2024-08-11 08:13 | NUR ---
PATIENT IN BED AT THIS TIME. TECHNOLOGY AND ENGINEERING TEACHER CHARTED BLOODSUGAR. CALL LIGHT WITHIN REACH, NO FURTHER NEEDS AT THIS TIME.
[2024-08-11 08:17] VITALS: BP 188/98
[2024-08-11 08:22] VITALS: BP 188/98
[2024-08-11 08:59] VITALS: BP 193/80
[2024-08-11] MEDS ORDERED: ASCORBIC ACID 500 MG TAB PO SCH (09:00)
--- NOTE | 2024-08-11 09:37 | NUR ---
PT ASSISTED TO DRESS. BREIF IS CLEAN AND DRY. PT MODERATED ASSIST TO SIT UP IN BED. PT TRANSFERS TO WHEELCHAIR VIA 2 PERSON MODERATE ASSIST. PT STANDS WITHOUT ASSIST BUT REQUIRES CONTACT GUARD AND CUEING. PT TAKES SMALL UNSTEADY STEPS. PT TOLERATES THIS ACTIVITY WELL. BELONGINGS GATHERED FOR DISCHARGE INCLUDES BOX OF CLOTHES, 1 PAIR OF SHOES, CELL PHONE, CELL PHONE TEST EVALUATOR, HAIR BRUSH, BLACK PURSE AND WALLET, HOME MEDICATIONS AND BLUE BACK PACK.
--- NOTE | 2024-08-11 09:54 | NUR ---
TELEPHONE REPORT PROVIDED TO BENJI CHILDS OF [facility] AT [facility].
--- NOTE | 2024-08-11 10:00 | NUR ---
PT LEFT MED-SURG VIA WHEELCHAIR, WITH BELONGINGS, ESCORTED BY ANA MARIA HERRERA, TO WHEELCHAIR VAN.
== END 2024-08-11 10:00 | DRG 690 ==
LOC: ED 16:12 → CCU 19:46 → MS 19:46 → CCU 19:46 → MS 08-09 11:30
PROVIDERS: Emergency Medicine; ADMIT Family Medicine; ATTEND Student in an Organized Health Care Education/Training Program
DX: N39.0 Urinary tract infection, site not specified (principal); I47.10 Supraventricular tachycardia, unspecified; J81.1 Chronic pulmonary edema; L97.829 Non-pressure chronic ulcer of other part of left lower leg with unspecified severity; L97.819 Non-pressure chronic ulcer of other part of right lower leg with unspecified severity; Z66 Do not resuscitate; R62.7 Adult failure to thrive; Z74.1 Need for assistance with personal care; M16.11 Unilateral primary osteoarthritis, right hip; B96.20 Unspecified Escherichia coli [E. coli] as the cause of diseases classified elsewhere; Z53.9 Procedure and treatment not carried out, unspecified reason; R54 Age-related physical debility; K59.00 Constipation, unspecified; E11.9 Type 2 diabetes mellitus without complications; F17.200 Nicotine dependence, unspecified, uncomplicated; R74.01 Elevation of levels of liver transaminase levels; I11.9 Hypertensive heart disease without heart failure; Z60.2 Problems related to living alone; Z88.0 Allergy status to penicillin; Z88.7 Allergy status to serum and vaccine; Z88.5 Allergy status to narcotic agent; Z68.31 Body mass index [BMI] 31.0-31.9, adult
CPT/HCPCS: 36415; 51701; 71045; 73502; 80053; 81001; 83036; 83735; 84100; 84484; 85025; 87088; 87186; 93005; 93010; 94760; 97162; 97163; 97165; 97530; 99285-25; A9270; J0153; J0696; J1171; J1650; J1815; J2405; J3475; J7030; J7040